=== PATIENT | female | born 1935 | race Caucasian/White ===

== ENCOUNTER 2020-12-16 15:26 | Emergency (ER) | payer MEDICARE, OTHER ==
--- NOTE | 2020-12-16 16:10 | EDM.PDOC ---
ED HPI GENERAL MEDICAL PROBLEM - General Chief Complaint: Gastrointestinal Problem Time Seen by Provider: 12/16/20 15:30 Source of Information: Reports: Patient, Family History Limitations: Reports: No Limitations - History of Present Illness INITIAL COMMENTS - FREE TEXT/NARRATIVE: c/o constipation x 2w pt with malaise, dec'd energy, poor appetite and poor BMs x 2w has tried laxatives, enemas x 2, liquid diet today and only had 2 small BMs in the past week no f/c/d, no n/v\\ has "gas pain" several times a day that last less than 5 min was at clinic 2d ago and today, creat 2.2 from 2d ago is 2.0 today, wbc 7.6 now with 74.7% segs and was 6.4 and 71.9% from 2d ago, has had inc'd plt 468 now and was 326 from 2d ago A1C 9.8 from 2d ago is up from 7.8 from 1y ago temp 99.2 forehead here, repeat 98.1 oral - Related Data Allergies Allergy/AdvReac Type Severity Reaction Status Date / Time erythromycin base Allergy Rash Verified 12/16/20 16:09 Penicillins Allergy Rash Verified 12/16/20 16:09 Home Meds: Home Meds Ferrous Sulfate 325 mg PO DAILY 12/16/17 [History] Levothyroxine 75 mcg PO ACBREAKFAST 12/16/17 [History] Metoprolol Tartrate 12.5 mg PO BID 12/16/17 [History] Warfarin Sodium 2.5 mg PO ASDIRECTED 12/16/17 [History] amLODIPine Besylate [Amlodipine Besylate] 5 mg PO DAILY 12/16/17 [History] atorvaSTATin [Lipitor] 10 mg PO DAILY 12/16/17 [History] ursodioL [Actigal] 300 mg PO DAILY 12/16/17 [History] Ascorbate Calcium [Vitamin C] 500 mg PO DAILY 12/17/17 [History] Docusate Sodium [Colace] 100 mg PO BID 12/17/17 [History] amLODIPine Besylate [Norvasc] 2.5 mg PO WITHDINNER 12/17/17 [History] Ciprofloxacin HCl [Cipro] 500 mg PO BID #14 tablet 12/16/20 [Rx] Insulin Glarg,Human.Rec.Analog [Lantus Solostar] 32 units SQ BEDTIME 12/16/20 [History] metroNIDAZOLE [Flagyl] 500 mg PO TID #21 tablet 12/16/20 [Rx] Past Medical History HEENT History: Reports: Cataract Cardiovascular History: Reports: Afib, High Cholesterol, Hypertension, Other (See Below) Other Cardiovascular History: HEART DISEASE-CHF Respiratory History: Reports: None Genitourinary History: Reports: Acute Renal Failure, Urinary Incontinence 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: Musculoskeletal History: Reports: Fracture Neurological History: Reports: None Psychiatric History: Reports: None Endocrine/Metabolic History: Reports: Diabetes, Type II, Hypothyroidism, Obesity/BMI 30+ Hematologic History: Reports: Anticoagulation Therapy, B12 Deficiency Immunologic History: Reports: None Oncologic (Cancer) History: Reports: None Dermatologic History: Reports: None - Infectious Disease History Infectious Disease History: Reports: Chicken Pox, Measles - Past Surgical History GI Surgical History: Reports: Appendectomy, Cholecystectomy, Colonoscopy Musculoskeletal Surgical History: Reports: Hip Replacement, Other (See Below) Other Musculoskeletal Surgeries/Procedures:: FOOT SURGERY Social & Family History - Family History Family Medical History: No Pertinent Family History - Tobacco Use Tobacco Use Status *Q: Unknown Ever Used Tobacco - Caffeine Use Caffeine Use: Reports: Coffee ED ROS GENERAL - Review of Systems Review Of Systems: See Below Constitutional: Reports: Malaise, Decreased Appetite. Denies: Fever, Chills, Night Sweats, Diaphoresis HEENT: Reports: No Symptoms Respiratory: Reports: No Symptoms Cardiovascular: Reports: No Symptoms Endocrine: Reports: No Symptoms GI/Abdominal: Reports: Abdominal Pain, Constipation. Denies: Nausea, Vomiting : Reports: No Symptoms Musculoskeletal: Reports: No Symptoms Skin: Reports: No Symptoms Neurological: Reports: No Symptoms Psychiatric: Reports: No Symptoms Hematologic/Lymphatic: Reports: No Symptoms Immunologic: Reports: No Symptoms ED EXAM, GI/ABD - Physical Exam Exam: See Below Exam Limited By: No Limitations General Appearance: Alert, WD/WN, No Apparent Distress, Other (walks with walker, unhappy, good eye contact, normal speech pattern, moves easily, inc'd BMI) Ears: Hearing Grossly Normal Nose: Normal Inspection Throat/Mouth: Normal Inspection, Normal Lips, Normal Teeth, Normal Oropharynx, Normal Voice, No Airway Compromise Head: Atraumatic, Normocephalic Neck: Normal Inspection, Supple, Non-Tender, Full Range of Motion Respiratory/Chest: No Respiratory Distress, Lungs Clear, Normal Breath Sounds, Chest Non-Tender Cardiovascular: Regular Rate, Rhythm, No Edema, Other (2/6 YANELY at LSB) GI/Abdominal Exam: Normal Bowel Sounds, Soft, Other (1+ tender at RUQ to deep palp in AAL, flank and epigastrium and lower abd NT). No: Guarding, Rigid, Rebound Back Exam: Normal Inspection. No: CVA Tenderness (R), CVA Tenderness (L) Extremities: Normal Inspection, Non-Tender, No Pedal Edema, Other (mild dec'd turgor UEs without tenting) Neurological: Alert, Oriented, CN II-XII Intact, Normal Cognition, No Motor/Sensory Deficits Psychiatric: Normal Affect, Normal Mood Skin Exam: Warm, Dry, Intact, Normal Color, No Rash Lymphatic: No Adenopathy Course - Vital Signs Last Recorded V/S: Last Vital Signs Temp 37.3 C 12/16/20 15:26 Pulse 72 12/16/20 15:26 Resp 16 12/16/20 15:26 BP 115/45 L 12/16/20 15:26 Pulse Ox 96 12/16/20 15:26 - Orders/Labs/Meds Orders: Active Orders 24 hr Category Date Time Status Abdomen Pelvis wo Cont [CT] Stat Exams 12/16/20 15:54 Ordered CULTURE URINE [RM] Stat Lab 12/16/20 16:41 Ordered Labs: Laboratory Tests 12/16/20 12/16/20 12/16/20 Range/Units 16:02 16:10 16:10 C-Reactive Protein 1.3 H (0.5-0.9) mg/dL Lipase 48 L (73-393) U/L Urine Color Yellow (YELLOW) Urine Appearance Slightly cloudy (CLEAR) Urine pH 5.0 (5.0-6.5) Ur Specific Jackson 1.025 (1.010-1.025) Urine Protein 30 H (NEGATIVE) mg/dL Urine Glucose (UA) 50 H (NORMAL) mg/dL Urine Ketones 15 H (NEGATIVE) mg/dL Urine Occult Blood Trace (NEGATIVE) Urine Nitrite Negative (NEGATIVE) Urine Bilirubin Small H (NEGATIVE) Urine Urobilinogen 1 H (NEGATIVE) mg/dL Ur Leukocyte Esterase Large H (NEGATIVE) - Re-Assessments/Exams Free Text/Narrative Re-Assessment/Exam: 12/16/20 17:07 CT abd/pelvis without contrast d/w Dr Dimas. There is diverticulosis without diverticulitis. However, pt has a mild inc'd CRP as well as new inc'd plts, both c/w a low grade acute diverticulitis. In conjunction with poor transit and malaise, pt clinical has evidence of an infectious process. pt has a small nodule next to the kidney and is aware that f/u and possible additional imaging should be d/w her physician Departure - Departure Time of Disposition: 16:59 Disposition: Home, Self-Care 01 Condition: Good Clinical Impression: Acute diverticulitis, Thrombocytosis, Elevated C-reactive protein (CRP), Co nstipation due to slow transit, Mild dehydration - Discharge Information *PRESCRIPTION DRUG MONITORING PROGRAM REVIEWED*: Not Applicable *COPY OF PRESCRIPTION DRUG MONITORING REPORT IN PATIENT BILL: Not Applicable Prescriptions: Ciprofloxacin HCl [Cipro] 500 mg PO BID #14 tablet metroNIDAZOLE [Flagyl] 500 mg PO TID #21 tablet Instructions: Diverticulitis, Rehydration, Elderly, Chronic Constipation Forms: ED Department Discharge Additional Instructions: Increase fluids. For infection, take ciprofloxacin 500 mg 1 tab 2 times a day for 7 days. For infection, take metronidazole 500 mg 1 tab 3 times a day for 7 days. No alcohol. To clean out colon, drink a 10-ounce bottle of magnesium citrate tonight and a second one tomorrow morning. If necessary, you can even drink a third bottle in 2 days. For discomfort, take acetaminophen 500 mg 2 tabs every 6 hours as needed. For discomfort, use moist heat in tub or shower for 10 minutes every several hours as needed. See your doctor in 7-10 days for further recommendations. Call or return to the Emergency Department if you are feeling worse. Sepsis Event Note (ED) - Evaluation Sepsis Screening Result: No Definite Risk - Focused Exam Vital Signs: Vital Signs Temp Pulse Resp BP Pulse Ox 12/16/20 15:26 37.3 C 72 16 115/45 L 96 - My Orders Last 24 Hours: My Active Orders 12/16/20 15:54 Abdomen Pelvis wo Cont [CT] Stat 12/16/20 16:41 CULTURE URINE [RM] Stat - Assessment/Plan Last 24 Hours: My Active Orders 12/16/20 15:54 Abdomen Pelvis wo Cont [CT] Stat 12/16/20 16:41 CULTURE URINE [RM] Stat
--- NOTE | 2020-12-16 17:08 | CT ---
INDICATION: Malaise and decreased BMs x2 weeks, question diverticulitis. GFR 25. CT ABDOMEN AND PELVIS WITHOUT CONTRAST: Spiral 2.5 mm axial sections were obtained through the abdomen and pelvis with sagittal and coronal reconstructions 12/16/20 - no comparisons. Total exam DLP was 1433.37 milligray-cm. The lower lung ch and pleural spaces visualized showed some minimal fibrotic changes and/or subsegmental atelectatic changes in the left lower lobe and lingula area. Very minimal patchy pneumonia in that area is difficult to entirely exclude however. Some very minimal scarring may also be present in the middle lobe. The heart did not appear enlarged. No pericardial effusion was seen. There are a few scattered calcifications in the left lobe of the liver which could be on the basis of previous histoplasmosis - correlate clinically. The liver has a somewhat nodular appearance to its surface raising question of cirrhosis. This should be correlated clinically also. The gallbladder is absent compatible with cholecystectomy. There is a small low-density lesion in the right adrenal gland with a larger lesion in the left adrenal gland measuring 14 mm for the right lesion and 24 to 26 mm for the left-sided lesion. The spleen was not enlarged. The pancreas appeared grossly normal. No dilatation of the common bile duct was noted. The kidneys are abnormal with renal cortical scarring and some thinning. The right kidney appears to be involved with more renal cortical scarring than the left and shows evidence of a probable simple cyst off the upper pole medial cortex. This probable simple cyst measured approximately 14 mm. A much larger probable simple cyst is noted measuring 38 mm mostly exophytic off the mid pole cortex of the left kidney. A high-density lesion off the lower pole of the left kidney is noted of indeterminate nature measuring 11 mm. Ultrasound or more likely CT with IV contrast may be helpful but might be limited with this patient's relatively low GFR. 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 The appendix is absent compatible with history of its removal. No evidence of free air or bowel obstruction was noted. Minimal diverticulosis noted in the transverse colon, diverticulosis of the descending colon is noted from the splenic flexure inferiorly with sigmoid diverticulosis more prominent and also extending into the rectosigmoid area. However, no definite evidence of diverticulitis was noted. Calcifications are noted in the aorta, splenic artery, superior mesenteric artery minimally, iliac and femoral arteries. 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 A ventral hernia is noted - umbilical hernia is noted at the umbilicus with a small to moderate size ostium and measuring approximately 35 mm transversely and also craniocaudad. It includes only fat. No other ventral hernia, or inguinal hernia was suggested. Hip pinning is noted on the right. No additional mass lesions or free fluid collections were identified in the abdomen or pelvis. No retroperitoneal mass was seen. IMPRESSION: 1. Diverticulosis coli most notable in the sigmoid and rectosigmoid without definite evidence of diverticulitis. No bowel obstruction seen. 2. Renal cortical scarring and probable renal cysts with one high-density lesion of small size off the lower pole of the left kidney, etiology indeterminate. 3. Intimal dissection mid abdominal aorta. No leakage seen. 4. Post cholecystectomy. 5. Post appendectomy. 6. ASD. 7. 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 8. Probable minimal scarring at the lung bases. 9. Somewhat nodular appearance of the surface of the liver raising question of cirrhosis. 10. Adrenal masses relatively low in density most likely adenomas. This could be confirmed by dynamic CT examination with IV contrast, however, this is limited in this patient with high GFR. 11. Small umbilical hernia which includes only fat. Report was called to Dr. Hamm at 1643 hours 12/16/20. [facility]
== END 2020-12-16 17:24 | disposition home or self-care (01) ==
LOC: FB.ED 15:26
DX: K59.01 Slow transit constipation (principal); E86.0 Dehydration; K57.92 Diverticulitis of intestine, part unspecified, without perforation or abscess without bleeding; D47.3 Essential (hemorrhagic) thrombocythemia; R79.82 Elevated C-reactive protein (CRP); I48.91 Unspecified atrial fibrillation; E78.00 Pure hypercholesterolemia, unspecified; I11.0 Hypertensive heart disease with heart failure; I50.9 Heart failure, unspecified; E11.9 Type 2 diabetes mellitus without complications; E03.9 Hypothyroidism, unspecified; E66.9 Obesity, unspecified; Z68.36 Body mass index [BMI] 36.0-36.9, adult; Z79.01 Long term (current) use of anticoagulants; Z79.4 Long term (current) use of insulin; Z79.899 Other long term (current) drug therapy; Z88.0 Allergy status to penicillin; Z88.1 Allergy status to other antibiotic agents
CPT/HCPCS: 36415; 74176; 81003; 83690; 86140; 87086; 99284-25

== ENCOUNTER 2022-07-22 18:18 | Inpatient (IN) | payer MEDICARE, OTHER ==
[2022-07-22 19:47] LABS: ESTIMATED GFR 20 mL/min (>60)
[2022-07-22] MEDS ORDERED: Acetaminophen 325 MG Tab PO ONE (20:15)
[2022-07-22] MEDS ORDERED: traMADol 50 MG Tab PO ONE (20:15)
[2022-07-22] MEDS ORDERED: Ondansetron 4 MG Tab.DIS PO ONE (20:59)
[2022-07-22] MEDS ORDERED: Warfarin 2.5 MG Tab PO SCH (22:15)
[2022-07-22] MEDS ORDERED: Cyanocobalamin (Vitamin B12) 1,000 MCG/ML SDV IM SCH (22:15)
[2022-07-22] MEDS ORDERED: Sodium Chloride 0.9% 1,000 ML IV SCH (22:15)
[2022-07-22] MEDS ORDERED: Glucagon,Human Recombinant 1 MG Vial IM PRN (22:15)
[2022-07-22] MEDS ORDERED: 50% Dextrose in Water 50 ML Syringe IVPUSH PRN (22:15)
[2022-07-22] MEDS: Sodium Chloride 0.9% 10 ML Syringe FLUSH PRN (23:50)
[2022-07-23] MEDS ORDERED: Ondansetron 4 MG/2 ML SDV IV PRN (01:00)
[2022-07-23] MEDS ORDERED: Sulfamethoxazole/Trimethoprim 800-160 MG Tab PO SCH (01:30)
[2022-07-23] MEDS ORDERED: Sulfamethoxazole/Trimethoprim 800-160 MG Tab PO ONE (01:45)
[2022-07-23 06:33] LABS: ESTIMATED GFR 21 mL/min (>60)
[2022-07-23] MEDS ORDERED: Calcium Carbonate 500 MG Tablet PO SCH (09:00)
[2022-07-23] MEDS ORDERED: Non-Formulary Medication 1 Each (Ascorbate Calcium [Vitamin C] 500 MG Tablet) PO SCH (09:00)
[2022-07-23] MEDS ORDERED: Ursodiol 300 MG Cap PO SCH (09:00)
[2022-07-23] MEDS ORDERED: Warfarin Sliding Scale PO SCH (09:45)
[2022-07-23] MEDS: Ursodiol 300 MG Cap PO SCH (10:23)
[2022-07-23] MEDS: Levothyroxine 75 MCG Tab PO SCH (10:23)
[2022-07-23] MEDS: VITAMIN D PO SCH (10:24)
[2022-07-23] MEDS: Metoprolol Tartrate 25 MG Tab PO SCH ×2 (10:24→20:18)
[2022-07-23] MEDS: Allopurinol 100 MG Tab PO SCH (10:26)
[2022-07-23] MEDS: amLODIPine 5 MG Tab PO SCH (10:26)
[2022-07-23] MEDS: Acetaminophen 325 MG Tab PO PRN ×3 (10:27→23:35)
[2022-07-23] MEDS ORDERED: Warfarin 2.5 MG Tab *PTOM PO ONE (16:00)
[2022-07-23] MEDS ORDERED: amLODIPine 5 MG Tab *PTOM PO SCH (18:00)
[2022-07-23] MEDS ORDERED: atorvaSTATin 20 MG Tab *PTOM PO SCH (18:00)
[2022-07-23] MEDS ORDERED: Insulin Glargine,Human Rec. Analog 100 Units/ML 3 ML Pen SUBCUT SCH (21:00)
[2022-07-24 06:52] LABS: ESTIMATED GFR 17 mL/min (>60)
[2022-07-24] MEDS: Levothyroxine 75 MCG Tab PO SCH (06:52)
[2022-07-24] MEDS: Sodium Chloride 0.9% 1,000 ML IV SCH ×2 (08:52→22:32)
[2022-07-24] MEDS: VITAMIN D PO SCH (08:52)
[2022-07-24] MEDS: Allopurinol 100 MG Tab PO SCH (08:52)
[2022-07-24] MEDS: Ursodiol 300 MG Cap PO SCH (08:53)
[2022-07-24] MEDS ORDERED: Lactulose Soln 10 GM/15 ML 15 ML UD Cup PO PRN (09:00)
[2022-07-24] MEDS: Metoprolol Tartrate 25 MG Tab PO SCH ×2 (09:06→20:18)
[2022-07-24] MEDS: amLODIPine 5 MG Tab PO SCH (09:07)
[2022-07-24] MEDS: Acetaminophen 325 MG Tab PO PRN ×2 (09:25→20:25)
[2022-07-24] MEDS: Acetaminophen/HYDROcodone 325-5 MG Tab PO PRN (09:44)
[2022-07-24] MEDS: Polyethylene Glycol 3350 Powder 17 GM Packet PO SCH (09:49)
[2022-07-24] MEDS ORDERED: Insulin Lispro 100 Unit/ML 3 ML KwikPen SUBCUT ONE (12:12)
[2022-07-24] MEDS: Insulin Lispro 100 Unit/ML 3 ML KwikPen SUBCUT SCH ×2 (12:13→17:57)
[2022-07-24] MEDS ORDERED: Warfarin 2.5 MG Tab PO ONE (16:00)
[2022-07-24] MEDS: atorvaSTATin 10 MG Tab PO SCH (17:57)
[2022-07-24] MEDS ORDERED: amLODIPine 2.5 MG Tab PO SCH (18:00)
[2022-07-24] MEDS: Insulin Glargine,Human Rec. Analog 100 Units/ML 3 ML Pen SUBCUT SCH (20:19)
[2022-07-25] MEDS: Acetaminophen/HYDROcodone 325-5 MG Tab PO PRN ×3 (00:49→22:22)
[2022-07-25] MEDS: Levothyroxine 75 MCG Tab PO SCH (06:45)
[2022-07-25 07:16] LABS: ESTIMATED GFR 18 mL/min (>60)
[2022-07-25] MEDS: amLODIPine 5 MG Tab PO SCH ×2 (08:38→20:24)
[2022-07-25] MEDS: Metoprolol Tartrate 25 MG Tab PO SCH ×2 (08:38→20:23)
[2022-07-25] MEDS: Cholecalciferol (Vitamin D3) 25 MCG Tab PO SCH (08:39)
[2022-07-25] MEDS: Allopurinol 100 MG Tab PO SCH (08:39)
[2022-07-25] MEDS: Polyethylene Glycol 3350 Powder 17 GM Packet PO SCH (09:12)
[2022-07-25] MEDS: Ursodiol 300 MG Cap PO SCH (09:13)
[2022-07-25] MEDS: Sodium Chloride 0.9% 10 ML Syringe FLUSH PRN (09:54)
[2022-07-25] MEDS: Sodium Chloride 0.9% 1,000 ML IV SCH ×2 (10:10→20:15)
[2022-07-25] MEDS: Insulin Lispro 100 Unit/ML 3 ML KwikPen SUBCUT SCH ×2 (11:43→17:42)
[2022-07-25] MEDS: atorvaSTATin 10 MG Tab PO SCH (17:45)
[2022-07-25] MEDS: Insulin Glargine,Human Rec. Analog 100 Units/ML 3 ML Pen SUBCUT SCH (20:18)
[2022-07-26] MEDS: Sodium Chloride 0.9% 1,000 ML IV SCH ×2 (06:19→22:37)
[2022-07-26 06:33] LABS: ESTIMATED GFR 21 mL/min (>60)
[2022-07-26] MEDS: Levothyroxine 75 MCG Tab PO SCH (06:35)
[2022-07-26] MEDS: Allopurinol 100 MG Tab PO SCH (08:16)
[2022-07-26] MEDS: Metoprolol Tartrate 25 MG Tab PO SCH ×2 (08:16→20:20)
[2022-07-26] MEDS: Ursodiol 300 MG Cap PO SCH (08:16)
[2022-07-26] MEDS: Polyethylene Glycol 3350 Powder 17 GM Packet PO SCH (08:17)
[2022-07-26] MEDS: amLODIPine 5 MG Tab PO SCH ×2 (08:17→20:21)
[2022-07-26] MEDS: Cholecalciferol (Vitamin D3) 25 MCG Tab PO SCH (08:17)
[2022-07-26] MEDS: Isosorbide Mononitrate 30 MG Tab.ER PO SCH (11:12)
[2022-07-26] MEDS: Insulin Lispro 100 Unit/ML 3 ML KwikPen SUBCUT SCH ×2 (11:34→17:33)
[2022-07-26] MEDS ORDERED: Albuterol 0.083% 2.5 MG/3 ML Neb Soln NEB PRN (12:15)
[2022-07-26] MEDS ORDERED: Warfarin 2.5 MG Tab PO ONE (16:00)
[2022-07-26] MEDS: Acetaminophen/HYDROcodone 325-5 MG Tab PO PRN (16:49)
[2022-07-26] MEDS: atorvaSTATin 10 MG Tab PO SCH (17:27)
[2022-07-26 18:59] LABS: CORONAVIRUS COVID-19 NAA NEGATIVE (NEGATIVE)
[2022-07-26] MEDS: Insulin Glargine,Human Rec. Analog 100 Units/ML 3 ML Pen SUBCUT SCH (20:12)
[2022-07-27] MEDS: Acetaminophen/HYDROcodone 325-5 MG Tab PO PRN (02:25)
[2022-07-27 06:36] LABS: ESTIMATED GFR 24 mL/min (>60)
[2022-07-27] MEDS: Levothyroxine 75 MCG Tab PO SCH (07:16)
[2022-07-27] MEDS: Ursodiol 300 MG Cap PO SCH (09:32)
[2022-07-27] MEDS: Metoprolol Tartrate 25 MG Tab PO SCH ×2 (09:32→21:17)
[2022-07-27] MEDS: amLODIPine 5 MG Tab PO SCH ×2 (09:32→21:17)
[2022-07-27] MEDS: Polyethylene Glycol 3350 Powder 17 GM Packet PO SCH (09:32)
[2022-07-27] MEDS: Cholecalciferol (Vitamin D3) 25 MCG Tab PO SCH (09:33)
[2022-07-27] MEDS: Allopurinol 100 MG Tab PO SCH (09:33)
[2022-07-27] MEDS: Isosorbide Mononitrate 30 MG Tab.ER PO SCH (09:37)
[2022-07-27] MEDS: Insulin Lispro 100 Unit/ML 3 ML KwikPen SUBCUT SCH ×2 (12:46→18:04)
[2022-07-27] MEDS: Acetaminophen 325 MG Tab PO PRN (15:32)
[2022-07-27] MEDS ORDERED: Warfarin 2.5 MG Tab PO ONE (16:00)
[2022-07-27] MEDS: atorvaSTATin 10 MG Tab PO SCH (18:08)
[2022-07-27] MEDS: Insulin Glargine,Human Rec. Analog 100 Units/ML 3 ML Pen SUBCUT SCH (21:19)
[2022-07-28] MEDS: Acetaminophen/HYDROcodone 325-5 MG Tab PO PRN ×2 (00:07→23:48)
[2022-07-28] MEDS: Levothyroxine 75 MCG Tab PO SCH (06:30)
[2022-07-28 06:40] LABS: ESTIMATED GFR 25 mL/min (>60)
[2022-07-28] MEDS: amLODIPine 5 MG Tab PO SCH ×2 (08:34→21:32)
[2022-07-28] MEDS: Cholecalciferol (Vitamin D3) 25 MCG Tab PO SCH (08:34)
[2022-07-28] MEDS: Ursodiol 300 MG Cap PO SCH (08:34)
[2022-07-28] MEDS: Isosorbide Mononitrate 30 MG Tab.ER PO SCH (08:35)
[2022-07-28] MEDS: Metoprolol Tartrate 25 MG Tab PO SCH ×2 (08:35→21:31)
[2022-07-28] MEDS: Polyethylene Glycol 3350 Powder 17 GM Packet PO SCH (08:35)
[2022-07-28] MEDS: Allopurinol 100 MG Tab PO SCH (08:35)
[2022-07-28] MEDS ORDERED: predniSONE 20 MG Tab PO ONE (10:43)
[2022-07-28] MEDS: Insulin Lispro 100 Unit/ML 3 ML KwikPen SUBCUT SCH ×2 (11:34→17:44)
[2022-07-28] MEDS ORDERED: Warfarin 2.5 MG Tab PO ONE (16:00)
[2022-07-28] MEDS: atorvaSTATin 10 MG Tab PO SCH (17:44)
[2022-07-28] MEDS: Insulin Glargine,Human Rec. Analog 100 Units/ML 3 ML Pen SUBCUT SCH (21:37)
[2022-07-29] MEDS: Levothyroxine 75 MCG Tab PO SCH (06:34)
[2022-07-29 07:04] LABS: ESTIMATED GFR 27 mL/min (>60)
[2022-07-29] MEDS: Cholecalciferol (Vitamin D3) 25 MCG Tab PO SCH (08:47)
[2022-07-29] MEDS: Polyethylene Glycol 3350 Powder 17 GM Packet PO SCH (08:47)
[2022-07-29] MEDS: Ursodiol 300 MG Cap PO SCH (08:47)
[2022-07-29] MEDS: Metoprolol Tartrate 25 MG Tab PO SCH ×2 (08:48→21:40)
[2022-07-29] MEDS: Allopurinol 100 MG Tab PO SCH (08:48)
[2022-07-29] MEDS: Isosorbide Mononitrate 30 MG Tab.ER PO SCH (08:48)
[2022-07-29] MEDS: amLODIPine 5 MG Tab PO SCH ×2 (08:49→21:41)
[2022-07-29] MEDS ORDERED: Furosemide 20 MG Tab PO ONE (09:44)
[2022-07-29] MEDS: Insulin Lispro 100 Unit/ML 3 ML KwikPen SUBCUT SCH ×2 (11:12→17:16)
[2022-07-29] MEDS: Acetaminophen/HYDROcodone 325-5 MG Tab PO PRN ×2 (15:36→23:25)
[2022-07-29] MEDS ORDERED: Warfarin 2.5 MG Tab PO ONE (16:00)
[2022-07-29] MEDS: atorvaSTATin 10 MG Tab PO SCH (18:06)
[2022-07-29] MEDS: Insulin Glargine,Human Rec. Analog 100 Units/ML 3 ML Pen SUBCUT SCH (21:56)
[2022-07-30 06:24] LABS: ESTIMATED GFR 25 mL/min (>60)
[2022-07-30] MEDS: Levothyroxine 75 MCG Tab PO SCH (06:42)
[2022-07-30] MEDS: Metoprolol Tartrate 25 MG Tab PO SCH (08:36)
[2022-07-30] MEDS: Allopurinol 100 MG Tab PO SCH (08:37)
[2022-07-30] MEDS: Isosorbide Mononitrate 30 MG Tab.ER PO SCH (08:37)
[2022-07-30] MEDS: Ursodiol 300 MG Cap PO SCH (08:37)
[2022-07-30] MEDS: Polyethylene Glycol 3350 Powder 17 GM Packet PO SCH (08:37)
[2022-07-30] MEDS: amLODIPine 5 MG Tab PO SCH (08:37)
[2022-07-30] MEDS: Cholecalciferol (Vitamin D3) 25 MCG Tab PO SCH (08:37)
[2022-07-30] MEDS: Acetaminophen/HYDROcodone 325-5 MG Tab PO PRN (10:10)
[2022-07-30] MEDS ORDERED: Warfarin 2.5 MG Tab PO SCH (16:00)
== END 2022-07-30 10:20 | disposition swing bed (61) | DRG 683 ==
LOC: FB.ED 18:18 → FB.MS 21:41 → OBSVTOIN 07-24 09:31 → FB.MS 07-30 10:19
PROVIDERS: ADMIT Emergency Medicine; ATTEND Student in an Organized Health Care Education/Training Program
DX: R53.1 Weakness (principal); N39.0 Urinary tract infection, site not specified; N17.9 Acute kidney failure, unspecified; M25.551 Pain in right hip; I13.0 Hypertensive heart and chronic kidney disease with heart failure and stage 1 through stage 4 chronic kidney disease, or unspecified chronic kidney disease; I12.9 Hypertensive chronic kidney disease with stage 1 through stage 4 chronic kidney disease, or unspecified chronic kidney disease; S32.591K Other specified fracture of right pubis, subsequent encounter for fracture with nonunion; Z68.41 Body mass index [BMI] 40.0-44.9, adult; Z51.5 Encounter for palliative care; K74.5 Biliary cirrhosis, unspecified; E66.9 Obesity, unspecified; G89.29 Other chronic pain; Z20.822 Contact with and (suspected) exposure to COVID-19; E78.5 Hyperlipidemia, unspecified; N18.4 Chronic kidney disease, stage 4 (severe); W18.39XA Other fall on same level, initial encounter; E11.22 Type 2 diabetes mellitus with diabetic chronic kidney disease; E03.9 Hypothyroidism, unspecified; M81.0 Age-related osteoporosis without current pathological fracture; E66.01 Morbid (severe) obesity due to excess calories; I50.9 Heart failure, unspecified; E78.00 Pure hypercholesterolemia, unspecified; R32 Unspecified urinary incontinence; I48.91 Unspecified atrial fibrillation; Z96.649 Presence of unspecified artificial hip joint; E86.0 Dehydration; E53.8 Deficiency of other specified B group vitamins; Z79.01 Long term (current) use of anticoagulants; Z90.49 Acquired absence of other specified parts of digestive tract; Z88.1 Allergy status to other antibiotic agents; Z88.0 Allergy status to penicillin; Z79.890 Hormone replacement therapy; Z79.4 Long term (current) use of insulin; Z79.899 Other long term (current) drug therapy; Z87.891 Personal history of nicotine dependence
CPT/HCPCS: 0241U; 36415; 71045; 71046; 71250; 72100; 72192; 73502-RT; 73552-RT; 73560-RT; 73590-RT; 73610-RT; 73700-RT; 80048; 80053; 81001; 82947; 83605; 83880; 84484; 85025; 85610; 85730; 87086; 87088; 87186; 93005; 93010; 93306; 94150; 97110-GO; 97110-GP; 97161-GP; 97165-GO; 97530-GO; 97530-GP; 97535-GO; 99222; 99231; 99232; 99238; 99284; 99285; A9270-GY; G0378; J1815; J1815-GY; J3490; J7030; J7512; Q0162

== ENCOUNTER 2022-07-30 07:57 | Inpatient (IN) | payer MEDICARE, OTHER ==
[2022-07-30] MEDS ORDERED: Bisacodyl 5 MG Tab PO PRN (13:26)
[2022-07-30] MEDS ORDERED: 50% Dextrose in Water 50 ML Syringe IVPUSH PRN (13:26)
[2022-07-30] MEDS ORDERED: Albuterol 0.083% 2.5 MG/3 ML Neb Soln NEB PRN (13:26)
[2022-07-30] MEDS ORDERED: Glucagon,Human Recombinant 1 MG Vial IM PRN (13:26)
[2022-07-30] MEDS: Acetaminophen 650 MG Tab.ER PO SCH ×2 (14:38→21:35)
[2022-07-30] MEDS ORDERED: Warfarin 2.5 MG Tab PO ONE (16:00)
[2022-07-30] MEDS: Insulin Lispro 100 Unit/ML 3 ML KwikPen SUBCUT SCH (18:04)
[2022-07-30] MEDS: amLODIPine 2.5 MG Tab PO SCH (18:09)
[2022-07-30] MEDS: atorvaSTATin 10 MG Tab PO SCH (18:09)
[2022-07-30] MEDS: Insulin Glargine,Human Rec. Analog 100 Units/ML 3 ML Pen SUBCUT SCH (21:31)
[2022-07-30] MEDS: Metoprolol Tartrate 25 MG Tab PO SCH (21:35)
[2022-07-31] MEDS: Acetaminophen 650 MG Tab.ER PO SCH ×4 (02:28→20:57)
[2022-07-31] MEDS: Levothyroxine 75 MCG Tab PO SCH (06:45)
[2022-07-31] MEDS: Cholecalciferol (Vitamin D3) 25 MCG Tab PO SCH (08:16)
[2022-07-31] MEDS: Ursodiol 300 MG Cap PO SCH (08:17)
[2022-07-31] MEDS: Phytonadione 100 MCG Tab PO SCH (08:17)
[2022-07-31] MEDS: Allopurinol 100 MG Tab PO SCH (08:17)
[2022-07-31] MEDS: Ascorbic Acid 500 MG Tab PO SCH (08:18)
[2022-07-31] MEDS: Isosorbide Mononitrate 30 MG Tab.ER PO SCH (08:18)
[2022-07-31] MEDS: Metoprolol Tartrate 25 MG Tab PO SCH ×2 (08:19→21:00)
[2022-07-31] MEDS: amLODIPine 5 MG Tab PO SCH (08:19)
[2022-07-31] MEDS: Calcium Carbonate 500 MG Tablet PO SCH (08:19)
[2022-07-31] MEDS ORDERED: Lactulose Soln 10 GM/15 ML 15 ML UD Cup PO PRN (09:00)
[2022-07-31] MEDS ORDERED: Warfarin Sliding Scale PO SCH (09:00)
[2022-07-31] MEDS: Insulin Lispro 100 Unit/ML 3 ML KwikPen SUBCUT SCH ×2 (11:16→17:10)
[2022-07-31] MEDS: Acetaminophen/HYDROcodone 325-5 MG Tab PO PRN (11:17)
[2022-07-31] MEDS ORDERED: Warfarin 2.5 MG Tab PO ONE (16:00)
[2022-07-31] MEDS: atorvaSTATin 10 MG Tab PO SCH (17:11)
[2022-07-31] MEDS: amLODIPine 2.5 MG Tab PO SCH (17:12)
[2022-07-31] MEDS: Insulin Glargine,Human Rec. Analog 100 Units/ML 3 ML Pen SUBCUT SCH (21:03)
[2022-08-01] MEDS: Acetaminophen 650 MG Tab.ER PO SCH ×4 (01:18→21:09)
[2022-08-01] MEDS: Acetaminophen/HYDROcodone 325-5 MG Tab PO PRN (03:07)
[2022-08-01] MEDS: Levothyroxine 75 MCG Tab PO SCH (05:07)
[2022-08-01] MEDS: Isosorbide Mononitrate 30 MG Tab.ER PO SCH (08:35)
[2022-08-01] MEDS: Allopurinol 100 MG Tab PO SCH (08:36)
[2022-08-01] MEDS: Cholecalciferol (Vitamin D3) 25 MCG Tab PO SCH (08:36)
[2022-08-01] MEDS: Ursodiol 300 MG Cap PO SCH (08:36)
[2022-08-01] MEDS: amLODIPine 5 MG Tab PO SCH (08:36)
[2022-08-01] MEDS: Ascorbic Acid 500 MG Tab PO SCH (08:36)
[2022-08-01] MEDS: Calcium Carbonate 500 MG Tablet PO SCH (08:36)
[2022-08-01] MEDS: Metoprolol Tartrate 25 MG Tab PO SCH ×2 (08:37→21:11)
[2022-08-01] MEDS: Phytonadione 100 MCG Tab PO SCH (08:37)
[2022-08-01] MEDS ORDERED: Metolazone 2.5 MG Tab PO PRN (08:53)
[2022-08-01] MEDS: Insulin Lispro 100 Unit/ML 3 ML KwikPen SUBCUT SCH ×2 (12:06→18:20)
[2022-08-01] MEDS ORDERED: Warfarin 2.5 MG Tab PO ONE (16:00)
[2022-08-01] MEDS: atorvaSTATin 10 MG Tab PO SCH (17:29)
[2022-08-01] MEDS: amLODIPine 2.5 MG Tab PO SCH (17:30)
[2022-08-01] MEDS: Insulin Glargine,Human Rec. Analog 100 Units/ML 3 ML Pen SUBCUT SCH (21:13)
[2022-08-02] MEDS: Acetaminophen 650 MG Tab.ER PO SCH ×4 (01:23→20:06)
[2022-08-02] MEDS: Acetaminophen/HYDROcodone 325-5 MG Tab PO PRN ×3 (03:05→20:09)
[2022-08-02] MEDS: Levothyroxine 75 MCG Tab PO SCH (05:24)
[2022-08-02] MEDS: Cholecalciferol (Vitamin D3) 25 MCG Tab PO SCH (08:16)
[2022-08-02] MEDS: Phytonadione 100 MCG Tab PO SCH (08:16)
[2022-08-02] MEDS: Allopurinol 100 MG Tab PO SCH (08:16)
[2022-08-02] MEDS: amLODIPine 5 MG Tab PO SCH (08:17)
[2022-08-02] MEDS: Ascorbic Acid 500 MG Tab PO SCH (08:17)
[2022-08-02] MEDS: Calcium Carbonate 500 MG Tablet PO SCH (08:17)
[2022-08-02] MEDS: Metoprolol Tartrate 25 MG Tab PO SCH ×2 (08:22→20:08)
[2022-08-02] MEDS: Ursodiol 300 MG Cap PO SCH (08:23)
[2022-08-02] MEDS: Isosorbide Mononitrate 30 MG Tab.ER PO SCH (08:23)
[2022-08-02] MEDS: Furosemide 20 MG Tab PO SCH (09:33)
[2022-08-02] MEDS: Insulin Lispro 100 Unit/ML 3 ML KwikPen SUBCUT SCH ×2 (11:59→17:57)
[2022-08-02] MEDS ORDERED: Warfarin 2.5 MG Tab PO ONE (16:00)
[2022-08-02] MEDS: atorvaSTATin 10 MG Tab PO SCH (17:57)
[2022-08-02] MEDS: amLODIPine 2.5 MG Tab PO SCH (17:58)
[2022-08-02] MEDS: Insulin Glargine,Human Rec. Analog 100 Units/ML 3 ML Pen SUBCUT SCH (20:11)
[2022-08-03] MEDS: Acetaminophen 650 MG Tab.ER PO SCH ×4 (05:50→21:50)
[2022-08-03] MEDS: Levothyroxine 75 MCG Tab PO SCH (05:55)
[2022-08-03 07:02] LABS: ESTIMATED GFR 25 mL/min (>60)
[2022-08-03] MEDS: amLODIPine 5 MG Tab PO SCH (09:04)
[2022-08-03] MEDS: Ascorbic Acid 500 MG Tab PO SCH (09:04)
[2022-08-03] MEDS: Phytonadione 100 MCG Tab PO SCH (09:04)
[2022-08-03] MEDS: Allopurinol 100 MG Tab PO SCH (09:04)
[2022-08-03] MEDS: Calcium Carbonate 500 MG Tablet PO SCH (09:04)
[2022-08-03] MEDS: Furosemide 20 MG Tab PO SCH (09:05)
[2022-08-03] MEDS: Metoprolol Tartrate 25 MG Tab PO SCH ×2 (09:05→21:53)
[2022-08-03] MEDS: Ursodiol 300 MG Cap PO SCH (09:05)
[2022-08-03] MEDS: Isosorbide Mononitrate 30 MG Tab.ER PO SCH (09:05)
[2022-08-03] MEDS: Cholecalciferol (Vitamin D3) 25 MCG Tab PO SCH (09:08)
[2022-08-03] MEDS: Insulin Lispro 100 Unit/ML 3 ML KwikPen SUBCUT SCH ×2 (13:23→18:44)
[2022-08-03] MEDS: Betamethasone Dipropionate/Clotrimazole 0.05-1% Crm 15 GM Tube TOP SCH ×2 (13:24→21:54)
[2022-08-03] MEDS: atorvaSTATin 10 MG Tab PO SCH (18:43)
[2022-08-03] MEDS: amLODIPine 2.5 MG Tab PO SCH (18:43)
[2022-08-03] MEDS: Acetaminophen/HYDROcodone 325-5 MG Tab PO PRN (21:48)
[2022-08-03] MEDS: Insulin Glargine,Human Rec. Analog 100 Units/ML 3 ML Pen SUBCUT SCH (21:50)
[2022-08-04] MEDS: Acetaminophen 650 MG Tab.ER PO SCH ×4 (02:22→20:11)
[2022-08-04] MEDS: Levothyroxine 75 MCG Tab PO SCH (06:21)
[2022-08-04] MEDS: Isosorbide Mononitrate 30 MG Tab.ER PO SCH (08:47)
[2022-08-04] MEDS: Ursodiol 300 MG Cap PO SCH (08:47)
[2022-08-04] MEDS: Furosemide 20 MG Tab PO SCH (08:48)
[2022-08-04] MEDS: Metoprolol Tartrate 25 MG Tab PO SCH ×2 (08:48→20:12)
[2022-08-04] MEDS: Betamethasone Dipropionate/Clotrimazole 0.05-1% Crm 15 GM Tube TOP SCH ×2 (08:49→20:13)
[2022-08-04] MEDS: Calcium Carbonate 500 MG Tablet PO SCH (08:50)
[2022-08-04] MEDS: amLODIPine 5 MG Tab PO SCH (08:50)
[2022-08-04] MEDS: Ascorbic Acid 500 MG Tab PO SCH (08:50)
[2022-08-04] MEDS: Phytonadione 100 MCG Tab PO SCH (08:51)
[2022-08-04] MEDS: Cholecalciferol (Vitamin D3) 25 MCG Tab PO SCH (08:52)
[2022-08-04] MEDS: Allopurinol 100 MG Tab PO SCH (08:52)
[2022-08-04] MEDS: Insulin Lispro 100 Unit/ML 3 ML KwikPen SUBCUT SCH ×2 (13:30→18:12)
[2022-08-04] MEDS ORDERED: Warfarin 2.5 MG Tab PO ONE (16:00)
[2022-08-04] MEDS: atorvaSTATin 10 MG Tab PO SCH (18:16)
[2022-08-04] MEDS: amLODIPine 2.5 MG Tab PO SCH (18:16)
[2022-08-04] MEDS: Acetaminophen/HYDROcodone 325-5 MG Tab PO PRN (20:10)
[2022-08-04] MEDS: Insulin Glargine,Human Rec. Analog 100 Units/ML 3 ML Pen SUBCUT SCH (20:14)
[2022-08-05] MEDS: Acetaminophen 650 MG Tab.ER PO SCH ×4 (04:06→20:06)
[2022-08-05] MEDS: Levothyroxine 75 MCG Tab PO SCH (06:33)
[2022-08-05] MEDS: Betamethasone Dipropionate/Clotrimazole 0.05-1% Crm 15 GM Tube TOP SCH ×2 (09:38→20:17)
[2022-08-05] MEDS: Ursodiol 300 MG Cap PO SCH (09:39)
[2022-08-05] MEDS: Isosorbide Mononitrate 30 MG Tab.ER PO SCH (09:40)
[2022-08-05] MEDS: Furosemide 20 MG Tab PO SCH (09:41)
[2022-08-05] MEDS: Phytonadione 100 MCG Tab PO SCH (09:42)
[2022-08-05] MEDS: Allopurinol 100 MG Tab PO SCH (09:42)
[2022-08-05] MEDS: Calcium Carbonate 500 MG Tablet PO SCH (09:42)
[2022-08-05] MEDS: amLODIPine 5 MG Tab PO SCH (09:42)
[2022-08-05] MEDS: Metoprolol Tartrate 25 MG Tab PO SCH ×2 (09:43→20:10)
[2022-08-05] MEDS: Cholecalciferol (Vitamin D3) 25 MCG Tab PO SCH (09:44)
[2022-08-05] MEDS: Ascorbic Acid 500 MG Tab PO SCH (09:45)
[2022-08-05] MEDS: Insulin Lispro 100 Unit/ML 3 ML KwikPen SUBCUT SCH ×2 (11:27→17:48)
[2022-08-05] MEDS ORDERED: Warfarin 2 MG Tab PO ONE (16:00)
[2022-08-05] MEDS: amLODIPine 2.5 MG Tab PO SCH (17:46)
[2022-08-05] MEDS: atorvaSTATin 10 MG Tab PO SCH (17:46)
[2022-08-05] MEDS: Acetaminophen/HYDROcodone 325-5 MG Tab PO PRN (20:08)
[2022-08-05] MEDS: Insulin Glargine,Human Rec. Analog 100 Units/ML 3 ML Pen SUBCUT SCH (20:12)
[2022-08-06] MEDS: Acetaminophen 650 MG Tab.ER PO SCH ×4 (02:50→20:24)
[2022-08-06] MEDS: Levothyroxine 75 MCG Tab PO SCH (05:58)
[2022-08-06] MEDS: Ursodiol 300 MG Cap PO SCH (08:24)
[2022-08-06] MEDS: Isosorbide Mononitrate 30 MG Tab.ER PO SCH (08:24)
[2022-08-06] MEDS: Furosemide 20 MG Tab PO SCH (08:25)
[2022-08-06] MEDS: Metoprolol Tartrate 25 MG Tab PO SCH ×2 (08:25→20:23)
[2022-08-06] MEDS: Calcium Carbonate 500 MG Tablet PO SCH (08:26)
[2022-08-06] MEDS: Betamethasone Dipropionate/Clotrimazole 0.05-1% Crm 15 GM Tube TOP SCH ×2 (08:26→20:17)
[2022-08-06] MEDS: Ascorbic Acid 500 MG Tab PO SCH (08:26)
[2022-08-06] MEDS: amLODIPine 5 MG Tab PO SCH (08:26)
[2022-08-06] MEDS: Phytonadione 100 MCG Tab PO SCH (08:27)
[2022-08-06] MEDS: Cholecalciferol (Vitamin D3) 25 MCG Tab PO SCH (08:27)
[2022-08-06] MEDS: Allopurinol 100 MG Tab PO SCH (08:27)
[2022-08-06] MEDS: Insulin Lispro 100 Unit/ML 3 ML KwikPen SUBCUT SCH ×2 (11:39→17:00)
[2022-08-06] MEDS ORDERED: Warfarin 2.5 MG Tab PO ONE (16:00)
[2022-08-06] MEDS: atorvaSTATin 10 MG Tab PO SCH (17:04)
[2022-08-06] MEDS: amLODIPine 2.5 MG Tab PO SCH (17:05)
[2022-08-06] MEDS: Insulin Glargine,Human Rec. Analog 100 Units/ML 3 ML Pen SUBCUT SCH (20:19)
[2022-08-06] MEDS: Acetaminophen/HYDROcodone 325-5 MG Tab PO PRN (20:32)
[2022-08-07] MEDS: Acetaminophen 650 MG Tab.ER PO SCH ×4 (01:45→20:28)
[2022-08-07] MEDS: Levothyroxine 75 MCG Tab PO SCH (05:40)
[2022-08-07] MEDS: Ursodiol 300 MG Cap PO SCH (08:09)
[2022-08-07] MEDS: Isosorbide Mononitrate 30 MG Tab.ER PO SCH (08:10)
[2022-08-07] MEDS: Furosemide 20 MG Tab PO SCH (08:10)
[2022-08-07] MEDS: Metoprolol Tartrate 25 MG Tab PO SCH ×2 (08:10→21:49)
[2022-08-07] MEDS: Betamethasone Dipropionate/Clotrimazole 0.05-1% Crm 15 GM Tube TOP SCH ×2 (08:12→21:49)
[2022-08-07] MEDS: Phytonadione 100 MCG Tab PO SCH (08:13)
[2022-08-07] MEDS: Calcium Carbonate 500 MG Tablet PO SCH (08:13)
[2022-08-07] MEDS: Cholecalciferol (Vitamin D3) 25 MCG Tab PO SCH (08:13)
[2022-08-07] MEDS: Ascorbic Acid 500 MG Tab PO SCH (08:13)
[2022-08-07] MEDS: amLODIPine 5 MG Tab PO SCH (08:14)
[2022-08-07] MEDS: Allopurinol 100 MG Tab PO SCH (08:14)
[2022-08-07] MEDS: Insulin Lispro 100 Unit/ML 3 ML KwikPen SUBCUT SCH ×2 (12:39→18:13)
[2022-08-07] MEDS ORDERED: Warfarin 2.5 MG Tab PO ONE (16:00)
[2022-08-07] MEDS: amLODIPine 2.5 MG Tab PO SCH (18:23)
[2022-08-07] MEDS: atorvaSTATin 10 MG Tab PO SCH (18:23)
[2022-08-07] MEDS ORDERED: Insulin Glargine,Human Rec. Analog 100 Units/ML 3 ML Pen SUBCUT ONE (20:27)
[2022-08-07] MEDS: Insulin Glargine,Human Rec. Analog 100 Units/ML 3 ML Pen SUBCUT SCH (20:28)
[2022-08-07] MEDS: Acetaminophen/HYDROcodone 325-5 MG Tab PO PRN (21:19)
[2022-08-08] MEDS: Acetaminophen 650 MG Tab.ER PO SCH ×4 (03:00→20:20)
[2022-08-08] MEDS: Levothyroxine 75 MCG Tab PO SCH (05:45)
[2022-08-08] MEDS: Isosorbide Mononitrate 30 MG Tab.ER PO SCH (08:17)
[2022-08-08] MEDS: Ursodiol 300 MG Cap PO SCH (08:17)
[2022-08-08] MEDS: Furosemide 20 MG Tab PO SCH (08:21)
[2022-08-08] MEDS: Betamethasone Dipropionate/Clotrimazole 0.05-1% Crm 15 GM Tube TOP SCH ×2 (08:21→20:23)
[2022-08-08] MEDS: Metoprolol Tartrate 25 MG Tab PO SCH ×2 (08:21→20:22)
[2022-08-08] MEDS: Ascorbic Acid 500 MG Tab PO SCH (08:22)
[2022-08-08] MEDS: Calcium Carbonate 500 MG Tablet PO SCH (08:22)
[2022-08-08] MEDS: amLODIPine 5 MG Tab PO SCH (08:22)
[2022-08-08] MEDS: Cholecalciferol (Vitamin D3) 25 MCG Tab PO SCH (08:22)
[2022-08-08] MEDS: Allopurinol 100 MG Tab PO SCH (08:22)
[2022-08-08] MEDS: Phytonadione 100 MCG Tab PO SCH (08:22)
[2022-08-08] MEDS: Insulin Lispro 100 Unit/ML 3 ML KwikPen SUBCUT SCH ×2 (14:05→18:34)
[2022-08-08] MEDS: Warfarin 2.5 MG Tab PO SCH (16:39)
[2022-08-08] MEDS: atorvaSTATin 10 MG Tab PO SCH (18:37)
[2022-08-08] MEDS: amLODIPine 2.5 MG Tab PO SCH (18:37)
[2022-08-08] MEDS: Insulin Glargine,Human Rec. Analog 100 Units/ML 3 ML Pen SUBCUT SCH (20:16)
[2022-08-08] MEDS: Acetaminophen/HYDROcodone 325-5 MG Tab PO PRN (20:21)
[2022-08-09] MEDS: Acetaminophen 650 MG Tab.ER PO SCH ×4 (02:23→20:42)
[2022-08-09] MEDS: Acetaminophen/HYDROcodone 325-5 MG Tab PO PRN ×2 (03:14→23:33)
[2022-08-09] MEDS: Levothyroxine 75 MCG Tab PO SCH (06:37)
[2022-08-09] MEDS ORDERED: Melatonin 3 MG Tab PO PRN (06:58)
[2022-08-09] MEDS: Ursodiol 300 MG Cap PO SCH (08:47)
[2022-08-09] MEDS: Furosemide 20 MG Tab PO SCH (08:49)
[2022-08-09] MEDS: Cholecalciferol (Vitamin D3) 25 MCG Tab PO SCH (08:51)
[2022-08-09] MEDS: Calcium Carbonate 500 MG Tablet PO SCH (08:51)
[2022-08-09] MEDS: Ascorbic Acid 500 MG Tab PO SCH (08:52)
[2022-08-09] MEDS: Phytonadione 100 MCG Tab PO SCH (08:52)
[2022-08-09] MEDS: Allopurinol 100 MG Tab PO SCH (08:52)
[2022-08-09] MEDS: Metoprolol Tartrate 25 MG Tab PO SCH ×2 (08:54→20:43)
[2022-08-09] MEDS: Isosorbide Mononitrate 30 MG Tab.ER PO SCH (08:56)
[2022-08-09] MEDS: amLODIPine 5 MG Tab PO SCH (08:59)
[2022-08-09] MEDS: Insulin Lispro 100 Unit/ML 3 ML KwikPen SUBCUT SCH ×2 (11:44→19:48)
[2022-08-09] MEDS: Betamethasone Dipropionate/Clotrimazole 0.05-1% Crm 15 GM Tube TOP SCH ×2 (14:01→20:44)
[2022-08-09] MEDS: Warfarin 2.5 MG Tab PO SCH (15:05)
[2022-08-09] MEDS: atorvaSTATin 10 MG Tab PO SCH (17:22)
[2022-08-09] MEDS: amLODIPine 2.5 MG Tab PO SCH (17:23)
[2022-08-09] MEDS: Insulin Glargine,Human Rec. Analog 100 Units/ML 3 ML Pen SUBCUT SCH (20:38)
[2022-08-09] MEDS ORDERED: Melatonin 3 MG Tab PO SCH (21:00)
[2022-08-10] MEDS: Acetaminophen 650 MG Tab.ER PO SCH ×4 (03:09→20:24)
[2022-08-10] MEDS: Levothyroxine 75 MCG Tab PO SCH (05:46)
[2022-08-10] MEDS: Ursodiol 300 MG Cap PO SCH (10:00)
[2022-08-10] MEDS: Isosorbide Mononitrate 30 MG Tab.ER PO SCH (10:00)
[2022-08-10] MEDS: Metoprolol Tartrate 25 MG Tab PO SCH ×2 (10:01→20:25)
[2022-08-10] MEDS: Betamethasone Dipropionate/Clotrimazole 0.05-1% Crm 15 GM Tube TOP SCH ×2 (10:01→20:25)
[2022-08-10] MEDS: Furosemide 20 MG Tab PO SCH (10:01)
[2022-08-10] MEDS: Cholecalciferol (Vitamin D3) 25 MCG Tab PO SCH (10:02)
[2022-08-10] MEDS: amLODIPine 5 MG Tab PO SCH (10:02)
[2022-08-10] MEDS: Ascorbic Acid 500 MG Tab PO SCH (10:02)
[2022-08-10] MEDS: Calcium Carbonate 500 MG Tablet PO SCH (10:02)
[2022-08-10] MEDS: Allopurinol 100 MG Tab PO SCH (10:03)
[2022-08-10] MEDS: Phytonadione 100 MCG Tab PO SCH (10:04)
[2022-08-10] MEDS: Insulin Lispro 100 Unit/ML 3 ML KwikPen SUBCUT SCH ×2 (12:16→18:25)
[2022-08-10] MEDS: Warfarin 2.5 MG Tab PO SCH (16:26)
[2022-08-10] MEDS: amLODIPine 2.5 MG Tab PO SCH (17:53)
[2022-08-10] MEDS: atorvaSTATin 10 MG Tab PO SCH (17:54)
[2022-08-10] MEDS: Insulin Glargine,Human Rec. Analog 100 Units/ML 3 ML Pen SUBCUT SCH (20:28)
[2022-08-10] MEDS: Magnesium Chloride 64 MG Tab.ER PO SCH (20:28)
[2022-08-11] MEDS: Acetaminophen/HYDROcodone 325-5 MG Tab PO PRN (00:21)
[2022-08-11] MEDS: Acetaminophen 650 MG Tab.ER PO SCH ×4 (02:21→22:50)
[2022-08-11] MEDS: Levothyroxine 75 MCG Tab PO SCH (05:26)
[2022-08-11] MEDS: Isosorbide Mononitrate 30 MG Tab.ER PO SCH (08:00)
[2022-08-11] MEDS: Ursodiol 300 MG Cap PO SCH (08:00)
[2022-08-11] MEDS: Furosemide 20 MG Tab PO SCH (08:01)
[2022-08-11] MEDS: Metoprolol Tartrate 25 MG Tab PO SCH ×2 (08:01→22:51)
[2022-08-11] MEDS: Ascorbic Acid 500 MG Tab PO SCH (08:02)
[2022-08-11] MEDS: amLODIPine 5 MG Tab PO SCH (08:02)
[2022-08-11] MEDS: Cholecalciferol (Vitamin D3) 25 MCG Tab PO SCH (08:02)
[2022-08-11] MEDS: Calcium Carbonate 500 MG Tablet PO SCH (08:02)
[2022-08-11] MEDS: Allopurinol 100 MG Tab PO SCH (08:03)
[2022-08-11] MEDS: Phytonadione 100 MCG Tab PO SCH (08:03)
[2022-08-11] MEDS: Betamethasone Dipropionate/Clotrimazole 0.05-1% Crm 15 GM Tube TOP SCH ×2 (08:05→22:52)
[2022-08-11] MEDS: Insulin Lispro 100 Unit/ML 3 ML KwikPen SUBCUT SCH ×2 (12:09→17:48)
[2022-08-11] MEDS: Warfarin 2.5 MG Tab PO SCH (16:14)
[2022-08-11] MEDS: amLODIPine 2.5 MG Tab PO SCH (17:48)
[2022-08-11] MEDS: atorvaSTATin 10 MG Tab PO SCH (17:49)
[2022-08-11] MEDS: tiZANidine 4 MG Tab PO PRN (22:50)
[2022-08-11] MEDS: Insulin Glargine,Human Rec. Analog 100 Units/ML 3 ML Pen SUBCUT SCH (22:51)
[2022-08-11] MEDS: Magnesium Chloride 64 MG Tab.ER PO SCH (22:53)
[2022-08-12] MEDS: Acetaminophen 650 MG Tab.ER PO SCH ×4 (01:05→20:08)
[2022-08-12] MEDS: Levothyroxine 75 MCG Tab PO SCH (05:11)
[2022-08-12] MEDS: Isosorbide Mononitrate 30 MG Tab.ER PO SCH (09:03)
[2022-08-12] MEDS: Metoprolol Tartrate 25 MG Tab PO SCH ×2 (09:03→20:09)
[2022-08-12] MEDS: Ursodiol 300 MG Cap PO SCH (09:03)
[2022-08-12] MEDS: Furosemide 20 MG Tab PO SCH (09:03)
[2022-08-12] MEDS: Betamethasone Dipropionate/Clotrimazole 0.05-1% Crm 15 GM Tube TOP SCH ×2 (09:04→20:09)
[2022-08-12] MEDS: Calcium Carbonate 500 MG Tablet PO SCH (09:04)
[2022-08-12] MEDS: amLODIPine 5 MG Tab PO SCH (09:04)
[2022-08-12] MEDS: Phytonadione 100 MCG Tab PO SCH (09:05)
[2022-08-12] MEDS: Cholecalciferol (Vitamin D3) 25 MCG Tab PO SCH (09:05)
[2022-08-12] MEDS: Ascorbic Acid 500 MG Tab PO SCH (09:05)
[2022-08-12] MEDS: Allopurinol 100 MG Tab PO SCH (09:06)
[2022-08-12] MEDS: Insulin Lispro 100 Unit/ML 3 ML KwikPen SUBCUT SCH ×2 (12:00→18:00)
[2022-08-12] MEDS: Warfarin 2.5 MG Tab PO SCH ×3 (13:28→15:41)
[2022-08-12] MEDS: amLODIPine 2.5 MG Tab PO SCH (17:36)
[2022-08-12] MEDS: atorvaSTATin 10 MG Tab PO SCH (17:37)
[2022-08-12] MEDS: Magnesium Chloride 64 MG Tab.ER PO SCH (20:09)
[2022-08-12] MEDS: Insulin Glargine,Human Rec. Analog 100 Units/ML 3 ML Pen SUBCUT SCH (20:15)
[2022-08-12] MEDS: tiZANidine 4 MG Tab PO PRN (21:45)
[2022-08-12] MEDS ORDERED: Ondansetron 4 MG Tab.DIS PO PRN (23:22)
[2022-08-12] MEDS: Acetaminophen/HYDROcodone 325-5 MG Tab PO PRN (23:35)
[2022-08-13] MEDS: Acetaminophen 650 MG Tab.ER PO SCH ×4 (02:00→20:50)
[2022-08-13] MEDS: Levothyroxine 75 MCG Tab PO SCH (05:32)
[2022-08-13] MEDS ORDERED: Cyanocobalamin (Vitamin B12) 1,000 MCG/ML SDV IM ONE (09:00)
[2022-08-13] MEDS: Calcium Carbonate 500 MG Tablet PO SCH (09:09)
[2022-08-13] MEDS: Betamethasone Dipropionate/Clotrimazole 0.05-1% Crm 15 GM Tube TOP SCH ×2 (09:09→20:59)
[2022-08-13] MEDS: Cholecalciferol (Vitamin D3) 25 MCG Tab PO SCH (09:09)
[2022-08-13] MEDS: Metoprolol Tartrate 25 MG Tab PO SCH ×2 (09:10→20:52)
[2022-08-13] MEDS: Furosemide 20 MG Tab PO SCH (09:10)
[2022-08-13] MEDS: Phytonadione 100 MCG Tab PO SCH (09:10)
[2022-08-13] MEDS: Ursodiol 300 MG Cap PO SCH (09:10)
[2022-08-13] MEDS: Allopurinol 100 MG Tab PO SCH (09:11)
[2022-08-13] MEDS: amLODIPine 5 MG Tab PO SCH (09:11)
[2022-08-13] MEDS: Isosorbide Mononitrate 30 MG Tab.ER PO SCH (09:11)
[2022-08-13] MEDS: Ascorbic Acid 500 MG Tab PO SCH (09:11)
[2022-08-13] MEDS: Insulin Lispro 100 Unit/ML 3 ML KwikPen SUBCUT SCH ×2 (11:40→17:19)
[2022-08-13] MEDS: Acetaminophen/HYDROcodone 325-5 MG Tab PO PRN (15:19)
[2022-08-13] MEDS: Warfarin 2.5 MG Tab PO SCH (17:18)
[2022-08-13] MEDS: atorvaSTATin 10 MG Tab PO SCH (17:20)
[2022-08-13] MEDS: amLODIPine 2.5 MG Tab PO SCH (17:21)
[2022-08-13] MEDS: Magnesium Chloride 64 MG Tab.ER PO SCH (20:52)
[2022-08-13] MEDS: Insulin Glargine,Human Rec. Analog 100 Units/ML 3 ML Pen SUBCUT SCH (20:58)
[2022-08-14] MEDS: Acetaminophen/HYDROcodone 325-5 MG Tab PO PRN ×3 (00:50→15:41)
[2022-08-14] MEDS: Acetaminophen 650 MG Tab.ER PO SCH ×4 (01:52→20:34)
[2022-08-14] MEDS: Levothyroxine 75 MCG Tab PO SCH (06:20)
[2022-08-14 06:23] LABS: ESTIMATED GFR 24 mL/min (>60)
[2022-08-14] MEDS: Calcium Carbonate 500 MG Tablet PO SCH (08:10)
[2022-08-14] MEDS: Metoprolol Tartrate 25 MG Tab PO SCH ×2 (08:10→20:35)
[2022-08-14] MEDS: Ascorbic Acid 500 MG Tab PO SCH (08:10)
[2022-08-14] MEDS: Furosemide 20 MG Tab PO SCH (08:11)
[2022-08-14] MEDS: Ursodiol 300 MG Cap PO SCH (08:11)
[2022-08-14] MEDS: Phytonadione 100 MCG Tab PO SCH (08:11)
[2022-08-14] MEDS: Isosorbide Mononitrate 30 MG Tab.ER PO SCH (08:11)
[2022-08-14] MEDS: Allopurinol 100 MG Tab PO SCH (08:11)
[2022-08-14] MEDS: amLODIPine 5 MG Tab PO SCH (08:12)
[2022-08-14] MEDS: Cholecalciferol (Vitamin D3) 25 MCG Tab PO SCH (08:13)
[2022-08-14] MEDS: Betamethasone Dipropionate/Clotrimazole 0.05-1% Crm 15 GM Tube TOP SCH ×2 (08:16→20:36)
[2022-08-14] MEDS ORDERED: Baclofen 10 MG Tab PO PRN (09:50)
[2022-08-14] MEDS: Gabapentin 100 MG Cap PO SCH ×2 (10:07→18:07)
[2022-08-14] MEDS: Insulin Lispro 100 Unit/ML 3 ML KwikPen SUBCUT SCH ×2 (13:45→18:04)
[2022-08-14] MEDS: Warfarin 2.5 MG Tab PO SCH (15:43)
[2022-08-14] MEDS: amLODIPine 2.5 MG Tab PO SCH (18:08)
[2022-08-14] MEDS: atorvaSTATin 10 MG Tab PO SCH (18:08)
[2022-08-14] MEDS: Baclofen 10 MG Tab PO SCH (20:35)
[2022-08-14] MEDS: Magnesium Chloride 64 MG Tab.ER PO SCH (20:35)
[2022-08-14] MEDS: Insulin Glargine,Human Rec. Analog 100 Units/ML 3 ML Pen SUBCUT SCH (20:37)
[2022-08-15] MEDS: Acetaminophen 650 MG Tab.ER PO SCH ×4 (02:00→21:00)
[2022-08-15] MEDS: Acetaminophen/HYDROcodone 325-5 MG Tab PO PRN ×2 (03:15→19:14)
[2022-08-15] MEDS: Levothyroxine 75 MCG Tab PO SCH (05:55)
[2022-08-15] MEDS: Furosemide 20 MG Tab PO SCH ×2 (09:26→14:25)
[2022-08-15] MEDS: Ursodiol 300 MG Cap PO SCH (09:29)
[2022-08-15] MEDS: Isosorbide Mononitrate 30 MG Tab.ER PO SCH (09:31)
[2022-08-15] MEDS: Metoprolol Tartrate 25 MG Tab PO SCH ×2 (09:31→21:00)
[2022-08-15] MEDS: Betamethasone Dipropionate/Clotrimazole 0.05-1% Crm 15 GM Tube TOP SCH ×2 (09:33→21:02)
[2022-08-15] MEDS: amLODIPine 5 MG Tab PO SCH (09:33)
[2022-08-15] MEDS: Calcium Carbonate 500 MG Tablet PO SCH (09:33)
[2022-08-15] MEDS: Gabapentin 100 MG Cap PO SCH ×2 (09:33→18:06)
[2022-08-15] MEDS: Ascorbic Acid 500 MG Tab PO SCH (09:34)
[2022-08-15] MEDS: Phytonadione 100 MCG Tab PO SCH (09:34)
[2022-08-15] MEDS: Cholecalciferol (Vitamin D3) 25 MCG Tab PO SCH (09:34)
[2022-08-15] MEDS: Allopurinol 100 MG Tab PO SCH (09:34)
[2022-08-15] MEDS: Potassium Chloride 10 MEQ Tab.ER PO SCH ×2 (10:15→21:02)
[2022-08-15] MEDS: Insulin Lispro 100 Unit/ML 3 ML KwikPen SUBCUT SCH ×2 (13:19→18:04)
[2022-08-15] MEDS: Warfarin 2.5 MG Tab PO SCH (16:08)
[2022-08-15] MEDS: amLODIPine 2.5 MG Tab PO SCH (18:10)
[2022-08-15] MEDS: atorvaSTATin 10 MG Tab PO SCH (18:11)
[2022-08-15] MEDS: Baclofen 10 MG Tab PO SCH (21:00)
[2022-08-15] MEDS: Magnesium Chloride 64 MG Tab.ER PO SCH (21:00)
[2022-08-15] MEDS: Insulin Glargine,Human Rec. Analog 100 Units/ML 3 ML Pen SUBCUT SCH (21:03)
[2022-08-16] MEDS: Acetaminophen 650 MG Tab.ER PO SCH ×4 (01:02→21:38)
[2022-08-16] MEDS: Levothyroxine 75 MCG Tab PO SCH (05:00)
[2022-08-16 07:08] LABS: ESTIMATED GFR 20 mL/min (>60)
[2022-08-16] MEDS: Ursodiol 300 MG Cap PO SCH (08:30)
[2022-08-16] MEDS: Isosorbide Mononitrate 30 MG Tab.ER PO SCH (08:37)
[2022-08-16] MEDS: Metoprolol Tartrate 25 MG Tab PO SCH (08:38)
[2022-08-16] MEDS: Potassium Chloride 10 MEQ Tab.ER PO SCH (08:38)
[2022-08-16] MEDS: amLODIPine 5 MG Tab PO SCH (08:39)
[2022-08-16] MEDS: Ascorbic Acid 500 MG Tab PO SCH (08:39)
[2022-08-16] MEDS: Calcium Carbonate 500 MG Tablet PO SCH (08:39)
[2022-08-16] MEDS: Allopurinol 100 MG Tab PO SCH (08:40)
[2022-08-16] MEDS: Phytonadione 100 MCG Tab PO SCH (08:40)
[2022-08-16] MEDS: Gabapentin 100 MG Cap PO SCH ×2 (08:41→17:00)
[2022-08-16] MEDS: Cholecalciferol (Vitamin D3) 25 MCG Tab PO SCH (08:41)
[2022-08-16] MEDS: Betamethasone Dipropionate/Clotrimazole 0.05-1% Crm 15 GM Tube TOP SCH (08:42)
[2022-08-16] MEDS ORDERED: Morphine 10 MG/0.5 ML Oral Syringe PO PRN ×2 (10:37→10:57)
[2022-08-16] MEDS ORDERED: LORazepam 0.5 MG Tab PO PRN (10:39)
[2022-08-16] MEDS: Acetaminophen/HYDROcodone 325-5 MG Tab PO PRN (13:14)
[2022-08-16] MEDS: Insulin Lispro 100 Unit/ML 3 ML KwikPen SUBCUT SCH ×2 (13:27→17:26)
[2022-08-16] MEDS ORDERED: Haloperidol Lactate 2 MG/ML Oral Soln 15 ML Bottle PO PRN (18:03)
[2022-08-16] MEDS: Morphine 10 MG/0.5 ML Oral Syringe PO PRN (21:37)
[2022-08-16] MEDS: Baclofen 10 MG Tab PO SCH (21:38)
[2022-08-16] MEDS: Magnesium Chloride 64 MG Tab.ER PO SCH (21:38)
[2022-08-17] MEDS: Acetaminophen 650 MG Tab.ER PO SCH ×4 (03:28→22:54)
[2022-08-17] MEDS: Levothyroxine 75 MCG Tab PO SCH (07:25)
[2022-08-17] MEDS ORDERED: Haloperidol Lactate 2 MG/ML Oral Soln 15 ML Bottle PO PRN (07:29)
[2022-08-17] MEDS: Morphine 10 MG/0.5 ML Oral Syringe PO PRN ×5 (08:49→22:45)
[2022-08-17] MEDS: Hyoscyamine 0.125 MG Tab.SL SL PRN ×2 (10:12→21:24)
[2022-08-17] MEDS: Insulin Lispro 100 Unit/ML 3 ML KwikPen SUBCUT SCH ×3 (11:07→18:07)
[2022-08-17] MEDS: Ursodiol 300 MG Cap PO SCH (11:08)
[2022-08-17] MEDS: Metoprolol Tartrate 25 MG Tab PO SCH (11:09)
[2022-08-17] MEDS: Gabapentin 100 MG Cap PO SCH ×2 (11:10→18:07)
[2022-08-17] MEDS: Allopurinol 100 MG Tab PO SCH (11:10)
[2022-08-17] MEDS: Furosemide 20 MG Tab PO SCH (15:22)
[2022-08-17] MEDS: LORazepam 0.5 MG Tab PO PRN (21:22)
[2022-08-17] MEDS: Magnesium Chloride 64 MG Tab.ER PO SCH (22:54)
[2022-08-17] MEDS: Baclofen 10 MG Tab PO SCH (22:54)
[2022-08-18] MEDS: Morphine 10 MG/0.5 ML Oral Syringe PO PRN ×5 (00:58→22:16)
[2022-08-18] MEDS: Acetaminophen 650 MG Tab.ER PO SCH ×2 (04:59→09:33)
[2022-08-18] MEDS: Levothyroxine 75 MCG Tab PO SCH (07:33)
[2022-08-18] MEDS: Insulin Lispro 100 Unit/ML 3 ML KwikPen SUBCUT SCH (09:33)
[2022-08-18] MEDS: Ursodiol 300 MG Cap PO SCH (09:33)
[2022-08-18] MEDS: Metoprolol Tartrate 25 MG Tab PO SCH (09:34)
[2022-08-18] MEDS: Allopurinol 100 MG Tab PO SCH (09:34)
[2022-08-18] MEDS: Gabapentin 100 MG Cap PO SCH (09:34)
[2022-08-18] MEDS: Hyoscyamine 0.125 MG Tab.SL SL PRN (16:37)
[2022-08-18] MEDS: LORazepam 0.5 MG Tab PO PRN (21:46)
[2022-08-19] MEDS: Hyoscyamine 0.125 MG Tab.SL SL PRN ×2 (01:01→21:26)
[2022-08-19] MEDS: LORazepam 0.5 MG Tab PO PRN (06:26)
[2022-08-19] MEDS: Morphine 10 MG/0.5 ML Oral Syringe PO PRN ×4 (07:35→14:57)
[2022-08-19] MEDS ORDERED: Scopolamine 1.5 MG Transdermal Patch TRDERM PRN (09:26)
[2022-08-19] MEDS: Morphine 10 MG/0.5 ML Oral Syringe PO SCH ×4 (17:00→23:10)
[2022-08-20] MEDS: Morphine 10 MG/0.5 ML Oral Syringe PO SCH ×6 (01:23→10:38)
[2022-08-20] MEDS: Morphine 10 MG/0.5 ML Oral Syringe PO PRN (02:55)
[2022-08-20] MEDS: Hyoscyamine 0.125 MG Tab.SL SL PRN (08:34)
[2022-08-20] MEDS ORDERED: Hyoscyamine 0.125 MG Tab.SL SL PRN (10:30)
[2022-08-20] MEDS ORDERED: Insulin Glargine,Human Rec. Analog 100 Units/ML 3 ML Pen SUBCUT ONE (10:47)
== END 2022-08-20 10:48 | disposition expired | DRG 560 ==
LOC: FB.MS 10:20
PROVIDERS: ADMIT Student in an Organized Health Care Education/Training Program; ATTEND Family Medicine
DX: S32.401D Unspecified fracture of right acetabulum, subsequent encounter for fracture with routine healing (principal); I13.0 Hypertensive heart and chronic kidney disease with heart failure and stage 1 through stage 4 chronic kidney disease, or unspecified chronic kidney disease; S32.591K Other specified fracture of right pubis, subsequent encounter for fracture with nonunion; N17.9 Acute kidney failure, unspecified; I48.20 Chronic atrial fibrillation, unspecified; N18.4 Chronic kidney disease, stage 4 (severe); J96.10 Chronic respiratory failure, unspecified whether with hypoxia or hypercapnia; S32.110D Nondisplaced Zone I fracture of sacrum, subsequent encounter for fracture with routine healing; Z66 Do not resuscitate; S32.11 Zone I fracture of sacrum; M80.00XS Age-related osteoporosis with current pathological fracture, unspecified site, sequela; R62.7 Adult failure to thrive; R53.81 Other malaise; Z51.5 Encounter for palliative care; I50.9 Heart failure, unspecified; E78.00 Pure hypercholesterolemia, unspecified; R32 Unspecified urinary incontinence; E11.22 Type 2 diabetes mellitus with diabetic chronic kidney disease; E03.9 Hypothyroidism, unspecified; E53.8 Deficiency of other specified B group vitamins; Z96.649 Presence of unspecified artificial hip joint; G89.29 Other chronic pain; E66.01 Morbid (severe) obesity due to excess calories; Z79.890 Hormone replacement therapy; Z79.02 Long term (current) use of antithrombotics/antiplatelets; Z79.4 Long term (current) use of insulin; Z79.899 Other long term (current) drug therapy; Z88.0 Allergy status to penicillin; Z87.891 Personal history of nicotine dependence; Z90.49 Acquired absence of other specified parts of digestive tract; Z68.37 Body mass index [BMI] 37.0-37.9, adult
CPT/HCPCS: 36415; 72192; 80048; 80053; 81001; 82550; 82947; 83735; 85610; 97110-GO; 97110-GP; 97116-GP; 97530-GO; 97530-GP; 97535-GO; 99305; 99309; 99315; A9270-GY; J1815; J1815-GY; J3420; Q0162